=== PATIENT | male | born 1955 | race Caucasian/White ===

== ENCOUNTER 2019-01-08 13:50 | Emergency (ER) | payer OTHER ==
[2019-01-08 13:56] VITALS: BP 187/114; PULSE 62; RESP 18; TEMP 97.8
--- NOTE | 2019-01-08 14:24 | ED ---
General Adult HPI - General Chief complaint: Needlestick/Exposure Stated complaint: needle stick Time Seen by Provider: 01/08/19 14:02 Source: patient, RN notes reviewed Mode of arrival: ambulatory Limitations: no limitations - History of Present Illness Initial comments: 63-year-old maleWith a past medical history of hypertension presents to the emergency department for needlestick exposure. Patient accidentally stuck himself in the right thumb just prior to arrival. Sources blood was drawn and this was HIV negative. No laceration to the right thumb. Patient has no other complaints at this time including shortness of breath, chest pain, abdominal pain, nausea or vomiting, headache, or visual changes. - Related Data Allergies Allergy/AdvReac Type Severity Reaction Status Date / Time No Known Allergies Allergy Verified 01/08/19 13:54 Review of Systems ROS Statement: Those systems with pertinent positive or pertinent negative responses have been documented in the HPI. ROS Other: All systems not noted in ROS Statement are negative. Past Medical History Past Medical History: Hypertension Additional Past Medical History / Comment(s): untreated hypertension History of Any Multi-Drug Resistant Organisms: None Reported Past Surgical History: Appendectomy, Bowel Resection Past Psychological History: No Psychological Hx Reported Smoking Status: Never smoker Past Alcohol Use History: Occasional Past Drug Use History: None Reported General Exam Limitations: no limitations General appearance: alert, in no apparent distress Head exam: Present: atraumatic, normocephalic, normal inspection Eye exam: Present: normal appearance, PERRL, EOMI. Absent: scleral icterus, conjunctival injection, periorbital swelling ENT exam: Present: normal exam, mucous membranes moist Neck exam: Present: normal inspection, full ROM. Absent: tenderness, meningi smus, lymphadenopathy Respiratory exam: Present: normal lung sounds bilaterally. Absent: respiratory distress, wheezes, rales, rhonchi, stridor Cardiovascular Exam: Present: regular rate, normal rhythm, normal heart sounds. Absent: systolic murmur, diastolic murmur, rubs, gallop, clicks Extremities exam: Present: normal inspection, full ROM (Full range of motion of the right thumb), normal capillary refill (Capillary refill less than 2 seconds), other (Small 1 mm superficial laceration noted of the finger pad of the right thumb). Absent: tenderness Course Vital Signs 01/08/19 13:51 Temperature 97.8 F Pulse Rate 62 Respiratory 18 Rate Blood Pressure 187/114 O2 Sat by Pulse 99 Oximetry Medical Decision Making - Medical Decision Making 63-year-old male presents to the emergency department for a chief complaint of needle stick injury. Sources blood was already drawn which is HIV negative. Patient had blood work drawn here for baseline by our protocol. Patient is hypertensive here in the emergency department however he is asymptomatic. No headache chest pain shortness of breath abdominal pain or back pain. No visual changes or dizziness. Patient is aware that he has hypertension and that it is currently untreated. He is going to follow-up with his primary care provider for this and does not want treatment at this time. He will return here if he has any worsening symptoms. Disposition Clinical Impression: Needle stick injury Disposition: HOME SELF-CARE Condition: Good Instructions (If sedation given, give patient instructions): Needle Stick Injuries (ED) Additional Instructions: Follow up with [facility] in one to 2 days. Return to the emergency department if you have any worsening symptoms Is patient prescribed a controlled substance at d/c from ED?: No Referrals: Ruiz Benjamin MD [Primary Care Provider] - 1-2 days Time of Disposition: 14:23
[2019-01-08 21:02] LABS: HIV 1 AB Non-Reactive (Non-Reactive); HIV AB P24 Non-Reactive (Non-Reactive); HIV P24 AG Non-Reactive (Non-Reactive)
[2019-01-08 21:15] LABS: Hepatitis C IgG Antibody Non-Reactive (Non-Reactive)
== END 2019-01-08 14:32 | disposition home or self-care (01) ==
LOC: EC 13:50
DX: S61.011A Laceration without foreign body of right thumb without damage to nail, initial encounter (principal); I10 Essential (primary) hypertension; W46.1XXA Contact with contaminated hypodermic needle, initial encounter
CPT/HCPCS: 36415; 86706; 86803; 87390; 99282

== ENCOUNTER → 2019-06-13 | Outpatient (CLI) | payer OTHER ==
--- NOTE | 2019-06-16 07:53 | MR ---
EXAMINATION TYPE: MR Prostate wo/w con DATE OF EXAM: 06/13/2019 COMPARISON: None. INDICATION: CA prostate PSA: 5.6 ng/ml on March 06, 2019 Recent Biopsy and Date: April 23, 2019 Pathology Report (If Applicable): Right lateral mid adenocarcinoma Michael grade 3+3 less than 5% of tissue measuring less than 1 mm in length Right mid prostatic adenocarcinoma [place] grade 3+3 approximately 10% of tissue measuring 1 mm in le ngth. Left prostatic apex adenocarcinoma Michael grade 3+3 approximately 10% of tissue measuring 1 mm in le ngth TECHNIQUE: Examination was performed using a 3T MRI without an endorectal coil. Multiparametric imaging was perf ormed with T2 mutliplanar sequences, axial diffusion weighted imaging and dynamic contrast enhanced i maging, utilizing 6 mL intravenous Gadavist gadolinium contrast. FINDINGS: There is no clinically significant cancer identified. PROSTATE VOLUME: 4.3 cm SI x 3.6 cm AP x 5.4 cm LR Vol= 43.79 cc PSA DENSITY: 5.254 ng/ml/cc T1 axial images show some residual areas of hyperintensity consistent with blood product from biopsy for reference lateral right apex axial image 13. Overall peripheral zone shows some areas of indistinct hypointensity bilaterally without areas of mil d to moderate hypointensity or increased signal on diffusion-weighted images. Transitional zone is heterogeneous without distinct there are indistinct areas of hypointensity and T 2 weighted images with particular attention to the right mid zone and left apex. Seminal vesicles are maintained bilaterally. Prostatic capsule is preserved. No adjacent adenopathy i s seen. Bladder shows mild trabeculation, wall thickness is upper limits of normal. There is no concerning pe lvic fluid collection. Rectum shows mild to moderate concentric wall thickening which should be corre lated clinically. Osseous structures are heterogeneous without suspicious edema or enhancing lesion. No groin hernia or adenopathy is noted. IMPRESSION: A focus of clinically significant cancer is not identified. Highest Assessment Category: 2 MRI Stage: T1c N0 M0 based on review of pelvic images. False negative rates for MRI range from 5-20% depending on risk profile. Assessment Categories: 1 ? Very low (clinically significant cancer is highly unlikely to be present) 2 ? Low (clinically significant cancer is unlikely to be present) 3 ? Intermediate (the presence of clinically significant cancer is equivocal) 4 ? High (clinically significant cancer is likely to be present) 5 ? Very high (clinically significant cancer is highly likely to be present) Locations:
== END | disposition home or self-care (01) ==
LOC: RADMRIMAIN 08:51
PROVIDERS: ATTEND Urology
DX: C61 Malignant neoplasm of prostate (principal)
CPT/HCPCS: 72197; A9585

== ENCOUNTER → 2019-09-30 | Outpatient (CLI) | payer OTHER | END | disposition home or self-care (01) | LOC: LABWHC1 08:07 | PROVIDERS: ATTEND Urology | DX: C61 Malignant neoplasm of prostate (principal) | CPT/HCPCS: 36415; 84153 ==

== ENCOUNTER → 2020-04-05 | Outpatient (CLI) | payer OTHER | END | disposition home or self-care (01) | LOC: LABWHC1 07:08 | PROVIDERS: ATTEND Urology | DX: C61 Malignant neoplasm of prostate (principal) | CPT/HCPCS: 36415; 84153 ==

== ENCOUNTER → 2020-05-05 | Outpatient (CLI) | payer OTHER ==
--- NOTE | 2020-05-07 16:47 | MR ---
EXAMINATION TYPE: MR Prostate wo/w con DATE OF EXAM: 05/05/2020 COMPARISON: MRI prostate 06/13/2019 IMAGE QUALITY: Good. INDICATION: Prostate ca, F/U comparison to MRI 06-13-19 PSA: 3.8 ng/ml, February 2020 Recent Biopsy and Date: 04/23/2019 Pathology Report (If Applicable): Right lateral mid prostatic adenocarcinoma Michael 3+3 = 6, right m id prostatic adenocarcinoma [place] 3+3 = 6, left apex prostatic adenocarcinoma Michael 3+3 = 6. TECHNIQUE: Examination was performed using a 3T MRI without an endorectal coil. Multiparametric imaging was perf ormed with T2 multiplanar sequences, axial diffusion weighted imaging and dynamic contrast enhanced i maging, utilizing 7 mL intravenous Gadavist gadolinium contrast. FINDINGS: There is no clinically significant cancer identified. Overall homogenous signal of the peripheral zon e. There are BPH changes of the transitional zone. Small focus of T1 hyperintense hemorrhage. PROSTATE VOLUME: 4.9 cm SI x 3.1 cm AP x 5.5 cm LR Vol= 43.4 cc PSA DENSITY: 0.08 ng/ml/cc Seminal vesicles are normal. Abnormal lymph nodes: None. Bone metastases in inferior pelvis: None. IMPRESSION: MRI evidence of clinically significant prostate cancer is not identified. Highest Assessment Category: 2 False negative rates for MRI range from 5-20% depending on risk profile. Assessment Categories: 1 Very low (clinically significant cancer is highly unlikely to be present) 2 Low (clinically significant cancer is unlikely to be present) 3 Intermediate (the presence of clinically significant cancer is equivocal) 4 High (clinically significant cancer is likely to be present) 5 Very high (clinically significant cancer is highly likely to be present) Locations: PZ = peripheral zone; TZ = transition zone CZ=central zone; AFS = anterior fibromuscular stroma a=anterior half (i.e. PZa=anterior half of peripheral zone); pm= posterior medial (i.e PZpm) pl = postero-lateral (i.e. PZpl); p = posterior half (i.e. TZp) ; a = anterior half (i.e TZa or P Za) Other: N=no or no; E= equivocal; Y=yes EPE = extraprostatic extension NVB = neurovascular bundle NA = not applicable/not available
== END | disposition home or self-care (01) ==
LOC: RADMRIMAIN 19:21
PROVIDERS: ATTEND Urology
DX: C61 Malignant neoplasm of prostate (principal)
CPT/HCPCS: 72197; A9585

== ENCOUNTER → 2021-04-19 | Outpatient (CLI) | payer OTHER | END | disposition home or self-care (01) | LOC: LABWHC1 07:23 | PROVIDERS: ATTEND Urology | DX: C61 Malignant neoplasm of prostate (principal) | CPT/HCPCS: 36415; 84153 ==

== ENCOUNTER → 2021-09-14 | Outpatient (CLI) | payer OTHER | END | disposition home or self-care (01) | LOC: LABWHC1 12:15 | PROVIDERS: ATTEND Emergency Medicine | DX: U07.1 COVID-19 (principal) | CPT/HCPCS: 87635 ==

== ENCOUNTER 2021-10-11 07:12 | Day surgery (SDC) | payer OTHER ==
[2021-10-10 08:37] VITALS: BMI 25.8
[~2021-10-11 07:12] MED LIST: LACTATED RINGERS 1,000 ML IV SCH
[2021-10-11 07:34] VITALS: TEMP 98.3
[2021-10-11] MEDS ORDERED: LIDOCAINE 1% (10MG/ML) FOR IV START INTRADERMA ONE (07:35)
[2021-10-11] MEDS ORDERED: PROPOFOL 10 MG/ML 20 ML VIAL IV ONE (08:02)
[2021-10-11] MEDS ORDERED: LIDOCAINE 1% INJ 10MG/ML (20 ML MDV) ONE (08:02)
--- NOTE | 2021-10-11 08:17 | P.GSHP ---
History of Present Illness H&P Date: 10/11/21 Chief Complaint: Colon cancer screening 66-year-old male here today for colonoscopy. Last colonoscopy over 5 years ago. Patient with history of colon polyps. No bowel complaints. No family history of colon cancer. Past Medical History Past Medical History: Hypertension Additional Past Medical History / Comment(s): untreated hypertension History of Any Multi-Drug Resistant Organisms: None Reported Past Surgical History: Appendectomy, Bowel Resection Additional Past Surgical History / Comment(s): COLONOSCOPY. BOWEL RESECTION AT AGE 13 Past Anesthesia/Blood Transfusion Reactions: No Reported Reaction Smoking Status: Never smoker - Past Family History Mother Family Medical History: No Reported History Medications and Allergies Home Medications Medication Instructions Recorded Confirmed Type lisinopriL 30 mg PO DAILY 10/11/21 10/11/21 History Allergies Allergy/AdvReac Type Severity Reaction Status Date / Time No Known Allergies Allergy Verified 10/11/21 07:34 Surgical - Exam Vital Signs Temp Pulse Resp BP Pulse Ox 98.3 F 64 16 158/95 98 10/11/21 07:32 10/11/21 07:32 10/11/21 07:32 10/11/21 07:32 10/11/21 07:32 Physical exam: General: Well-developed, well-nourished HEENT: Normocephalic, sclerae nonicteric Abdomen: Nontender, nondistended Extremities: No edema Neuro: Alert and oriented Assessment and Plan (1) Colon cancer screening Narrative/Plan: Will proceed with colonoscopy at this time Current Visit: Yes Status: Acute Code(s): Z12.11 - ENCOUNTER FOR SCREENING FOR MALIGNANT NEOPLASM OF COLON SNOMED Code(s): 889551866
--- NOTE | 2021-10-11 08:20 | P.PCN ---
Date of Procedure: 10/11/21 Procedure(s) Performed: PREOPERATIVE DIAGNOSIS: Colon cancer screening, history of polyps POSTOPERATIVE DIAGNOSIS: Prominent appendiceal orifice, internal and external hemorrhoids PROCEDURE: Colonoscopy with biopsy ANESTHESIA: MAC SURGEON: Ubaldo Francois M.D. SPECIMENS: Appendiceal orifice ENDOSCOPIC PROCEDURE: The patient was placed on the endoscopy table in the left decubitus position. The Olympus colonoscope was inserted into the anus and passed under direct visualization to the base of the cecum. The appendiceal orifice was visualized. From that point the scope was slowly withdrawn inspecting all surfaces carefully. Patient described a history of previous appendectomy and stated he had some additional surgery performed at that time. He initially thought that maybe the cecum and then removed. The patient clearly had an ileocecal valve however. The base of the cecum demonstrated what appeared to represent an inverted appendiceal stump. This measured approximately 1 cm in height. The mucosa appeared normal. A biopsy was taken to rule out adenomatous tissue. The remainder of the cecum and ascending transverse descending sigmoid and rectum appeared normal. At the anus the patient had evidence of internal and external hemorrhoids without any evidence of recent or active bleeding. The patient was taken to the recovery room in stable condition per anesthesia guidelines. RECOMMENDATIONS: Await biopsy results. Anticipate follow-up colonoscopy 5 years.
[2021-10-11 08:34] VITALS: BP 100/67; PULSE 55; RESP 16
== END 2021-10-11 08:56 | disposition home or self-care (01) ==
LOC: ORWHC2ENDO 07:12
PROVIDERS: ATTEND Surgery
DX: Z12.11 Encounter for screening for malignant neoplasm of colon (principal); K64.4 Residual hemorrhoidal skin tags; I10 Essential (primary) hypertension
CPT/HCPCS: 45380; 88305; J2001; J2704

== ENCOUNTER → 2021-11-15 | Outpatient (CLI) | payer OTHER ==
[2021-11-15 08:41] LABS: Appearance,Urine Clear (Clear); Bilirubin,Urine Negative (Negative); Blood,Urine Trace (Negative); Color,Urine Yellow; Glucose,Urine (UA) Negative (Negative); Ketones,Urine Negative (Negative); Leukocyte Esterase,Urine Negative (Negative); Mucus,Urine Rare /hpf; Nitrite,Urine Negative (Negative); Protein,Urine Negative (Negative); RBC,Urine 1 /hpf (0-5); Specific Gravity,Urine 1.022 (1.001-1.035); Urobilinogen,Urine <2.0 mg/dL (<2.0); WBC,Urine 1 /hpf (0-5)
[2021-11-15 12:06] LABS: Basophils # (A) 0.03 X 10*3/uL (0.00-0.10); Basophils % (A) 0.6 %; Eosinophils # (A) 0.21 X 10*3/uL (0.04-0.35); Eosinophils % (A) 4.4 %; Immature Grans, Automated 0.2 %; Lymphocytes # (A) 1.26 X 10*3/uL (0.90-5.00); Lymphocytes % (A) 26.7 %; MCHC 32.6 g/dL (32.0-37.0); MCV 92.3 fL (80.0-97.0); Monocytes # (A) 0.66 X 10*3/uL (0.20-1.00); NRBC Per 100 WBC 0 /100 WBCS (0.0-0.0); Neutrophils # (A) 2.55 X 10*3/uL (1.80-7.70); Neutrophils % (A) 54.1 %; Platelet Count 272 X 10*3/uL (140-440); RBC 4.66 X 10*6/uL (4.40-5.60); RDW 13.3 % (11.5-14.5); WBC 4.72 X 10*3/uL (4.50-10.00)
[2021-11-15 12:20] LABS: African American GFR (CKD) 61.1 (60.0-200.0); Albumin 4.3 g/dL (3.8-4.9); Albumin/Globulin Ratio 1.54 (1.60-3.17); Anion Gap 10.4 mmol/L (10.00-18.00); BUN/Creat Ratio 16.36 Ratio (12.00-20.00); Blood Urea Nitrogen 22.9 mg/dL (9.0-27.0); Calcium 9.9 mg/dL (8.7-10.3); Carbon Dioxide 21.6 mmol/L (20.0-27.5); Globulin 2.8 g/dL (1.6-3.3); HDL Cholesterol 89.6 mg/dL (40.00-60.00); Non-African American GFR(CKD) 52.7 (60.0-200.0); Potassium 4.3 mmol/L (3.5-5.5); T4, Free (Free Thyroxine) 1.13 ng/dL (0.800-1.800); Total Bilirubin 0.2 mg/dL (0.30-1.20); Total Protein 7.1 g/dL (6.2-8.2); Triglycerides 42.9 mg/dL (0.00-149.00)
[2021-11-15 12:31] LABS: Chol/HDL Ratio 2.43 Ratio
== END | disposition home or self-care (01) ==
LOC: LABWHC1 07:29
PROVIDERS: ATTEND Internal Medicine
DX: Z00.00 Encounter for general adult medical examination without abnormal findings (principal); C61 Malignant neoplasm of prostate
CPT/HCPCS: 36415; 80053; 80061; 81001; 83721; 84439; 84443; 85025

== ENCOUNTER → 2023-08-29 | Outpatient (CLI) | payer MEDICARE, OTHER ==
[2023-08-30 03:15] LABS: BUN/Creat Ratio 19.25 Ratio (12.00-20.00); Blood Urea Nitrogen 23.1 mg/dL (9.0-27.0); Chloride 104 mmol/L (96-109); Glucose 86 mg/dL (70-110); LDL Cholesterol,Calculated 116.1 mg/dL (0.0-131.0); Sodium 139 mmol/L (135-145); VLDL Calculation 8.24 mg/dL (5.00-40.00)
[2023-08-30 03:16] LABS: ALT 14 U/L (10-49); AST 18 U/L (14-35); Albumin 4.2 g/dL (3.8-4.9); Alkaline Phosphatase 74 U/L (41-126); Calcium 9.5 mg/dL (8.7-10.3); Carbon Dioxide 25.2 mmol/L (21.6-31.8); Prostate Specific Antigen 7.48 ng/mL (0.000-4.500); Total Bilirubin 0.4 mg/dL (0.3-1.2); Total Protein 7.2 g/dL (6.2-8.2)
== END | disposition home or self-care (01) ==
LOC: LABWHC1 16:06
PROVIDERS: ATTEND Ophthalmology
DX: Z00.00 Encounter for general adult medical examination without abnormal findings (principal)
CPT/HCPCS: 36415; 80053; 80061; 84153

== ENCOUNTER → 2024-04-03 | Outpatient (CLI) | payer MEDICARE, OTHER | END | disposition home or self-care (01) | LOC: LABWHC1 08:16 | PROVIDERS: ATTEND Urology | DX: C61 Malignant neoplasm of prostate (principal) | CPT/HCPCS: 36415; 84153 ==

== ENCOUNTER → 2024-10-09 | Outpatient (CLI) | payer MEDICARE, OTHER ==
[2024-10-09 10:49] LABS: ALT 13 U/L (10-49); AST 19 U/L (14-35); Albumin 4.1 g/dL (3.8-4.9); Albumin/Globulin Ratio 1.52 Ratio (1.60-3.17); Alkaline Phosphatase 65 U/L (41-126); BUN/Creat Ratio 21.21 Ratio (12.00-20.00); Blood Urea Nitrogen 29.7 mg/dL (9.0-27.0); Calcium 9.5 mg/dL (8.7-10.3); Carbon Dioxide 26.5 mmol/L (21.6-31.8); Chloride 108 mmol/L (96-109); Globulin 2.7 g/dL (1.6-3.3); Glucose 106 mg/dL (70-110); Prostate Specific Antigen 7.11 ng/mL (0.000-4.500); Sodium 143 mmol/L (135-145); Total Bilirubin 0.4 mg/dL (0.3-1.2); Total Protein 6.8 g/dL (6.2-8.2)
== END | disposition home or self-care (01) ==
LOC: LABWHC1 07:17
PROVIDERS: ATTEND Urology
DX: I10 Essential (primary) hypertension (principal); C61 Malignant neoplasm of prostate; Z86.79 Personal history of other diseases of the circulatory system
CPT/HCPCS: 36415; 80053; 84153

== ENCOUNTER → 2024-10-20 | Outpatient (CLI) | payer MEDICARE, OTHER ==
--- NOTE | 2024-10-20 10:23 | MR ---
EXAMINATION TYPE: MR Prostate wo/w con DATE OF EXAM: 10/20/2024 9:47 AM COMPARISON: 05/05/2020, 06/13/2019. CLINICAL INDICATION: Male, 69 years old with history of C61 Prostate ca; TECHNIQUE: Multi-planar, multi-sequence imaging of the pelvis is performed prior to and following the uncomplicated administration of bolus intravenous gadolinium. IV Contrast: mL Interpretive Criteria: PI-RADS v2.1 SERUM PSA: 04/03/24=6.13, 08/29/23=7.48 SURGICAL PATHOLOGY: No data available. FINDINGS: Prostatic dimensions: 5.5 x 5.7 x 3.6 cm. Ellipsoid Volume:59.09 (PSA density=0.10 ng/mL/mL) CENTRAL GLAND (Central and Transition Zones/CZ+TZ): Multiple bilateral, heterogenous appearing hypertrophic stromal nodules, without suspicious lesion. M edian lobe hypertrophy with protrusion into the base of the bladder. (PI-RADS 2) PERIPHERAL ZONE (PZ): Bilateral linear, indistinct wedgelike areas of low ADC, and low T2 signal, No evidence of masslike a bnormality, or localized perfusional hypervascularity, to further suggest a focus of clinically signi ficant prostate cancer. (PI-RADS 2) SEMINAL VESICLES (SV): Symmetric and unremarkable. PERIPROSTATIC TISSUES: Unremarkable. LYMPH NODES: No enlarged pelvic lymph node. REMAINING PELVIS: Bladder wall is within normal limits given distention. No abnormal free or organized intrapelvic fluid collection. No pathologic bowel dilation or mural thickening. No hernia visualized OSSEOUS STRUCTURES: No suspicious osseous abnormality. IMPRESSION: 1. No specific features for high-risk prostate cancer. Maximum PI-RADS score: 2. 2. Moderate BPH, estimated gland volume 59.09 mL. 3. No suspicious osseous lesion. No lymphadenopathy. No evidence of prostate adenocarcinoma involving the periprostatic tissues. [facility], , 10/20/2024 10:21 AM
== END | disposition home or self-care (01) ==
LOC: RADMRIMAIN 08:48
PROVIDERS: ATTEND Urology
DX: C61 Malignant neoplasm of prostate (principal); N40.0 Benign prostatic hyperplasia without lower urinary tract symptoms
CPT/HCPCS: 72197; A9585